=== PATIENT | male | born 1955 | race Caucasian/White ===

== ENCOUNTER → 2025-01-10 | Outpatient (CLI) | payer OTHER ==
--- NOTE | 2025-01-10 15:48 | HMCIMG ---
US CAROTID DUPLEX HISTORY: No additional history given. COMPARISON: None TECHNIQUE: Duplex carotid arterial Doppler ultrasound study was performed. FINDINGS: The common, internal and external carotid arteries are visualized. The peak systolic velocities of right common carotid artery is 33 centimeters per second, right internal carotid artery is 94 centimeters per second, right external carotid artery is 73 centimeters per second, and right vertebral artery is 31 centimeters per second. Right internal carotid artery to right common carotid artery ratio is 2.8. Right vertebral artery is seen with antegrade flow. The peak systolic velocities of left common carotid artery is 49 centimeters per second, left internal carotid artery is 68 centimeters per second, left external carotid artery is 60 centimeters per second, and left vertebral artery is 37 centimeters per second. Left internal carotid artery to left common carotid artery ratio is 1.4. Left vertebral artery is seen with antegrade flow. IMPRESSION: 1. No hemodynamically significant lesion is seen of either extracranial carotid artery system.
== END | disposition home or self-care (01) ==
LOC: RAH 14:24
PROVIDERS: ATTEND Family Medicine
DX: H93.A9 Pulsatile tinnitus, unspecified ear (principal); D69.6 Thrombocytopenia, unspecified; R73.01 Impaired fasting glucose; R97.20 Elevated prostate specific antigen [PSA]; E78.5 Hyperlipidemia, unspecified; I13.0 Hypertensive heart and chronic kidney disease with heart failure and stage 1 through stage 4 chronic kidney disease, or unspecified chronic kidney disease; N18.2 Chronic kidney disease, stage 2 (mild); I50.9 Heart failure, unspecified; Z79.899 Other long term (current) drug therapy; E55.9 Vitamin D deficiency, unspecified
CPT/HCPCS: 93880

== ENCOUNTER → 2025-08-18 | Outpatient (CLI) | payer OTHER ==
--- NOTE | 2025-08-19 08:08 | HMCIMG ---
EXAM: CT Cardiac calcium scoring. CLINICAL HISTORY: CAD screening. TECHNIQUE: Thin collimated axial CT cardiac images were obtained. A CT scan is done according to ALARA (As Low As Reasonably Achievable). CONTRAST: None. COMPARISON: None provided. FINDINGS: Calcium Score: VESSEL Number of lesions Volume mm3 Equi. Mass/mg Calcium score LM 0 00.00 00.00 00.00 LAD 0 00.00 00.00 00.00 LCX 0 00.00 00.00 00.00 RCA 0 00.00 00.00 00.00 Total 0 00.00 00.00 00.00 IMPRESSION: The calcium score is 0. This places the patient into 0th percentile in comparison to a group of patients asymptomatic for coronary artery disease with the same age and gender. This means that 0% of males aged 70-74 have a calcium score that is lower than the patient's. /Radha
== END | disposition home or self-care (01) ==
LOC: RAH 11:18
PROVIDERS: ATTEND Internal Medicine Cardiovascular Disease
DX: Z13.6 Encounter for screening for cardiovascular disorders (principal); I25.10 Atherosclerotic heart disease of native coronary artery without angina pectoris
CPT/HCPCS: 75571